=== PATIENT | male | born 2005 | race Hispanic/Latino ===

== ENCOUNTER 2023-05-14 18:06 | Emergency (ER) | payer SELFPAY ==
[~2023-05-14] VITALS: Ht 170.2 cm; Wt 68.0 kg
[2023-05-14] VITALS (7 sets, daily range): BP systolic 123–138; BP diastolic 75–98
[2023-05-14 19:43] LABS: BASO% 0.1 % (0-3); EOS% 0.2 % (0-8); HEMATOCRIT 47.9 % (39.0-50.0); HEMOGLOBIN 16.4 g/dl (14.0-18.0); IMMATURE GRANULOCYTES 0.3 % (0.0-5.0); LYMPH% 5.4 % (15-41); MEAN CELL VOLUME 86.8 fL CALC (80.0-100.0); MEAN CORPUSCULAR HGB 29.7 pG CALC (26.0-32.0); MEAN CORPUSCULAR HGB CONC 34.2 g/dL CAL (32.0-36.0); MONO% 2.3 % (2-13); NEUT# 15.81 thou/uL (1.82-7.42); NEUT% 91.7 % (42-76); RED BLOOD COUNT 5.52 mill/uL (4.70-6.10); RED CELL DISTRI WIDTH 12.8 % (11.5-15.5)
[2023-05-14 20:35] LABS: ALBUMIN 4.6 g/dL (3.2-5.0); ALKALINE PHOSPHATASE 264 u/l (38-126); AMYLASE 98 u/l (30-110); ANION GAP 22 (6-22 (CALC)); BUN 16 mg/dL (8-21); BUN/CREATININE RATIO 21 (12-20 (CALC)); CARBON DIOXIDE 20 mmol/l (22-30); CHLORIDE 101 mmol/l (95-108); CREATININE 0.8 mg/dL (0.7-1.3); GFR FOR AFR.AMER. > 60 ML/MIN (>=60 (CALC)); GFR OTHER RACES > 60 ML/MIN (>=60 (CALC)); LIPASE 138 u/l (23-300); POTASSIUM 4.9 mmol/l (3.5-5.1); SGOT/AST 121 u/l (17-59); SODIUM 138 mmol/l (137-146); TOTAL PROTEIN 8.4 g/dL (6.3-8.2)
[2023-05-14 22:14] LABS: URINE BILIRUBIN - DIPSTICK Negative (NEGATIVE); URINE BLOOD DIPSTICK Trace-lysed (NEGATIVE); URINE GLUCOSE - DIPSTICK Negative (NEGATIVE); URINE KETONE Negative (NEGATIVE); URINE LEUK ESTERASE Negative (NEGATIVE); URINE NITRITE - DIPSTICK Negative (Negative); URINE PH 6.5 (4.5-8.0); URINE PROTEIN - DIPSTICK 30 mg/dL (NEG-TRACE); URINE SPECIFIC GRAVITY >=1.030; URINE UROBILINOGEN - DIPSTICK 0.2 E.U./dL (0.2)
[2023-05-14 22:20] LABS: URINE COLOR Yellow
[2023-05-14 22:21] LABS: URINE RBC 0-2 RBC/hpf (0-5); URINE WBC 0-2 WBC/hpf (0-5)
[2023-05-15] VITALS: BP 129/88
[2023-05-15 01:00] VITALS: BP 116/65
[2023-05-15 02:00] VITALS: BP 103/62
[2023-05-15 03:00] VITALS: BP 107/59
[2023-05-15 03:15] VITALS: BP 107/59
== END 2023-05-15 03:18 | disposition short-term general hospital (02) | DRG 388 ==
LOC: ED 18:06
PROVIDERS: Emergency Medicine
DX: K56.609 Unspecified intestinal obstruction, unspecified as to partial versus complete obstruction (principal); J18.9 Pneumonia, unspecified organism; F17.290 Nicotine dependence, other tobacco product, uncomplicated; Z98.890 Other specified postprocedural states
CPT/HCPCS: Q9967

== ENCOUNTER 2024-05-10 16:50 | Emergency (ER) | payer OTHER ==
[~2024-05-10] VITALS: Ht 170.2 cm; Wt 68.1 kg
[2024-05-10] VITALS (10 sets, daily range): BP systolic 111–133; BP diastolic 67–89
[2024-05-10] MEDS ORDERED: LIDOcaine HCl 1% (Local Anesth.) 20 ML VIAL STI STA (16:57)
[2024-05-10] MEDS ORDERED: ceFAZolin Sodium 1 GM in SODIUM CHLORIDE 0.9% 50 ML IV ONE (17:00)
[2024-05-10] MEDS ORDERED: Diph, Acellular Pertussis, Tet 0.5 ML/VIAL (Tdap) SDV IM ONE (17:00)
[2024-05-10] MEDS ORDERED: POVIDONE IODINE 0.5 OZ/BTL TOP ONE (17:00)
[2024-05-10] MEDS ORDERED: SODIUM CHLORIDE 0.9% 1,000 ML IV ONE (17:00)
[2024-05-10 17:13] LABS: BASO% 0.4 % (0-3); EOS% 1.5 % (0-8); HEMATOCRIT 45.8 % (39.0-50.0); HEMOGLOBIN 15.7 g/dl (14.0-18.0); IMMATURE GRANULOCYTES 0.4 % (0.0-5.0); LYMPH% 36.7 % (15-41); MEAN CELL VOLUME 88.8 fL CALC (80.0-100.0); MEAN CORPUSCULAR HGB 30.4 pG CALC (26.0-32.0); MEAN CORPUSCULAR HGB CONC 34.3 g/dL CAL (32.0-36.0); MONO% 5.8 % (2-13); NEUT# 3.93 thou/uL (1.82-7.42); NEUT% 55.2 % (42-76); RED BLOOD COUNT 5.16 mill/uL (4.70-6.10); RED CELL DISTRI WIDTH 12.2 % (11.5-15.5)
[2024-05-10 17:24] LABS: ALBUMIN 4.9 g/dL (3.2-5.0); BILIRUBIN, TOTAL 0.8 mg/dL (0.2-1.3); BUN 9 mg/dL (9-20); BUN/CREATININE RATIO 10 (12-20 (CALC)); CARBON DIOXIDE 21 mmol/l (22-30); CHLORIDE 111 mmol/l (95-108); CREATININE 0.9 mg/dL (0.7-1.3); ESTIMATED GFR 125 ML/MIN (>=90 (CALC)); ETHYL ALCOHOL 208 mg/dl (0-30); LIPASE 65 u/l (23-300); SGOT/AST 70 u/l (17-59); TOTAL PROTEIN 8.3 g/dL (6.3-8.2)
[2024-05-10 17:25] LABS: ALKALINE PHOSPHATASE 81 u/l (38-126); ANION GAP 18 (6-22 (CALC)); POTASSIUM 3.6 mmol/l (3.5-5.1); SODIUM 146 mmol/l (137-146)
[2024-05-10] MEDS ORDERED: CEPHALEXIN500 MG PO (18:23)
[2024-05-10] MEDS ORDERED: LACTATED RINGER'S 1,000 ML IV ONE (19:10)
== END 2024-05-10 21:26 | disposition home or self-care (01) | DRG 605 ==
LOC: ED 16:50
PROVIDERS: Family Medicine
PROC: 0HQ6XZZ Repair Back Skin, External Approach (ICD-10-PCS; principal; 2024-05-10)
DX: S31.811A Laceration without foreign body of right buttock, initial encounter (principal); S39.012A Strain of muscle, fascia and tendon of lower back, initial encounter; V57.5XXA Driver of pick-up truck or van injured in collision with fixed or stationary object in traffic accident, initial encounter; F10.129 Alcohol abuse with intoxication, unspecified; Y90.7 Blood alcohol level of 200-239 mg/100 ml
CPT/HCPCS: Q9967